=== PATIENT | female | born 1945 | race Two or more races ===

== ENCOUNTER 2023-01-25 00:47 | Inpatient (IN) | payer MEDICARE, BC ==
[~2023-01-25] VITALS: Ht 165.1 cm; Wt 47.6 kg
--- NOTE | 2023-01-25 00:54 | NUR ---
LABORATORY COURIER NOTES RECEIVED PATIENT FROM [facility]. PATIENT ARRIVED WITH 2 EMT'S AND WITH GURNEY WEARING LIGHT BROWN GOWN. PATIENT IS ON 5150 HOLD FOR DANGER TO SELF. THE TIME FOR HOLD ORDER IS 1736. THE DATE FOR HOLD IS 01/23/23. PATIENT IS A/ORIENTED TIMES 1-2. SERBIAN SPEAKER. ABLE TO MAKE NEEDS KNOWN. NO MEDICAL HISTORY. NO PSYCHIATRIC HISTORY NOTED. VITAL SIGNS : HF=977/74, P=70, RR=18, 02=96%RA, T=97.7. NO PAIN NOTED. NO SOB NOTED. NO DISTRESS NOTED. ADMITTING DIAGNOSIS IS PSYCHOSIS NOS. NO MEDICAL DIAGNOSIS. UPON FACE TO FACE EVALUATION, PATIENT IS CALM AND COOPERATIVE. PT DENIES SI/HI/AVH AT THIS TIME. NO ANXIETY NOTED. HEAD TO TOE ASSESSMENT DONE. SMALL BRUISE NOTED ON THE LEFT FOREARM . PHOTO TAKEN AND KEPT IN THE CHART. NOTIFIED DR. BERNARD AND BUSINESS INTELLIGENCE ANALYST ADDY INFORMED OF PT'S ADMISSION. ALL THE BELONGINGS COLLECTED FOR CONTRABAND CHECK. ALL THE BELONGING KEPT IN THE LOCKER. PATIENT IS ABLE TO AMBULATE WITH ASSISTANCE AND SUPERVISION. ALL SAFETY MEASURES IN PLACE. BED LOCKED IN THE LOWEST POSITION. BED ALARM ON. SIDE RAILS UP TIMES 2. WILL CONTINUE TO MONITOR EVERY 15 MINUTES FOR SAFETY DURING SHIFT.
[2023-01-25] MEDS ORDERED: ACETAMINOPHEN 325 MG TABLET PO PRN (01:00)
[2023-01-25] MEDS ORDERED: MAGNESIUM HYDROXIDE 30 ML UDC PO PRN (01:00)
[2023-01-25] MEDS ORDERED: MAG HYDROX/AL HYDROX/SIMETH 30 ML UDC PO PRN (01:00)
[2023-01-25] MEDS ORDERED: BLOOD SUGAR DIAGNOSTIC 1 EACH STRIP IN ONE (01:00)
[2023-01-25 02:14] VITALS: BP 158/74
[2023-01-25 07:23] LABS: CALCIUM, SERUM 8.2 mg/dL (8.5-10.1); CREATININE 0.7 mg/dL (0.6-1.3); POTASSIUM 3.9 mmol/L (3.5-5.1)
[2023-01-25 08:00] VITALS: BP 104/69
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
--- NOTE | 2023-01-25 11:07 | NUR ---
MONA Initial Discharge Plan: Pt currently lives at home [address] [place] [address]; [phone]). MONA will contact pt's Ciro ([phone]) to discuss and gather collateral. MONA will work with the MD, family, and treatment team.
--- NOTE | 2023-01-25 11:08 | NUR ---
Treatment Plan: Pt very confused and unable to sign the treatment plan.
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
[2023-01-25] MEDS: FLUOXETINE HCL 20 MG CAPSULE PO SCH ×2 (12:38→12:56)
[2023-01-25] MEDS: ENSURE ENLIVE 237 ML LIQUID (VANILLA) PO SCH ×2 (12:39→17:12)
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
[2023-01-25 16:00] VITALS: BP 108/66
[2023-01-25 19:48] VITALS: BP 136/58
[2023-01-25] MEDS ORDERED: OLANZAPINE 2.5 MG TABLET PO SCH (22:00)
[2023-01-25] MEDS: TEMAZEPAM 7.5 MG CAPSULE PO PRN (22:26)
[2023-01-26 07:05] LABS: BILIRUBIN,TOTAL 0.5 mg/dL (0.2-1.0); CALCIUM, SERUM 8.5 mg/dL (8.5-10.1); CREATININE 0.8 mg/dL (0.6-1.3); POTASSIUM 3.5 mmol/L (3.5-5.1)
[2023-01-26 08:00] VITALS: BP 101/55
[2023-01-26] MEDS: ENSURE ENLIVE 237 ML LIQUID (VANILLA) PO SCH ×3 (09:12→17:28)
--- NOTE | 2023-01-26 11:07 | NUR ---
RECEIVED PT IN BED SLEEPING RESTING PEACEFULLY EASY TO AROUSE, COOPERATIVE, TOOK ALL MEDICATIONS WHOLE WITH WATER, STATED SHE FELT COLD AND WAS GIVEN A BLANKET, MADE PT COMFORTABLE AND PROMOTED SELF DIGNITY WHICH GAVE HER GOOD SELF ESTEEM. ENCOURAGED PT TO EXPRESS NEEDS AND PT ABLE TO MAKE ALL NEEDS KNOWN. NO ASPIRATION , NO SOB, NO DISTRESS NOTED AT THIS TIME.
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
[2023-01-26] MEDS: FLUOXETINE HCL 20 MG CAPSULE PO SCH (12:59)
[2023-01-26] MEDS: LORAZEPAM 0.5 MG TABLET PO PRN (12:59)
[2023-01-26 16:00] VITALS: BP 110/75
[2023-01-26] MEDS ORDERED: ESCI10TA PO (16:47)
[2023-01-26 20:14] VITALS: BP 100/57
[2023-01-26] MEDS: OLANZAPINE 2.5 MG TABLET PO SCH (21:15)
[2023-01-27 08:00] VITALS: BP 125/65
[2023-01-27] MEDS: ENSURE ENLIVE 237 ML LIQUID (VANILLA) PO SCH ×3 (09:34→17:34)
[2023-01-27] MEDS ORDERED: Fluoxetine 10 mg capsule PO SCH (13:00)
[2023-01-27] MEDS: LORAZEPAM 0.5 MG TABLET PO PRN (15:48)
--- NOTE | 2023-01-27 15:48 | NUR ---
NURSE NOTE: PT ANXIOUS/RESTLESS AT THIS TIME. ATIVAN PO ADMINISTERED ORDERED. PT MONE WELL. WILL CONT TO MONITOR.
--- NOTE | 2023-01-27 15:57 | NUR ---
MONA Family Contact: MONA contacted pt's Ciro, ([phone]) and returned his call regarding his questions.
[2023-01-27 16:00] VITALS: BP 120/80
[2023-01-27 16:31] LABS: THYROID STIMULATING HORMONE 1.115 uIU/mL (0.358-3.74)
--- NOTE | 2023-01-27 17:48 | NUR ---
NURSE NOTE: PT CALM, ATIVAN EFFECTIVE AT THIS TIME. WILL CONT TO MONITOR.
--- NOTE | 2023-01-27 19:30 | NUR ---
RN notes Received Pt in gerychair. Pt is alert and orientedX1, confused, guarded, diorganized, isolative and depressed. On room air. No SOB. No S/S of distress noted. Snacks is offered. Reality orientation provided. safety precautions is maintained. will continue to monitor Q 15 mins checks for safety and behavior.
[2023-01-27 21:01] VITALS: BP 119/73
[2023-01-27] MEDS: OLANZAPINE 2.5 MG TABLET PO SCH (21:32)
[2023-01-28 08:00] VITALS: BP 127/67
--- NOTE | 2023-01-28 08:08 | NUR ---
SNF Referral: SW sent clinicals to [facility] to Jaylen reynolds ([phone]) for placement. SW sent H & P, progress notes, and medication list.
[2023-01-28] MEDS: ENSURE ENLIVE 237 ML LIQUID (VANILLA) PO SCH ×3 (08:36→17:26)
--- NOTE | 2023-01-28 09:13 | NUR ---
Court Notification: SW contacted pt's Ciro ([phone]) and notified of 5250 hearing.
--- NOTE | 2023-01-28 09:14 | NUR ---
Court Hearing: Patient's court hearing for 2260 was today and it was upheld for GD.
--- NOTE | 2023-01-28 10:41 | NUR ---
SNF Contact: SW spoke with [facility] to Jaylen reynolds ([phone]) who stated pt is accepted.
[2023-01-28] MEDS: OLANZAPINE 2.5 MG TABLET PO SCH ×2 (13:26→22:12)
[2023-01-28] MEDS: Fluoxetine 10 mg capsule PO SCH (13:26)
[2023-01-28 16:00] VITALS: BP 113/63
--- NOTE | 2023-01-28 18:04 | NUR ---
RN-NOTES PATIENT IS VISIBLE IN THE UNIT ,GUARDED,A/O X3 AMBULATORY STEADY GAIT.NO ACUTE DISTRESS NOTED. COMPLIANT WITH MEDICATIONS. PATIENT ABLE TO MAKE NEEDS KNOWN TPO THE STAFF. PARTICIPATES WITH THE GROUP ALL NEEDS ATTENDED AND ANTICIPATED. WILL CONT. MONITORING FOR SAFETY AND BEHAVIOR.WILL ENDORSE TO THE INCOMING NURSE FOR THE CONTINUITY OF CARE. Addendum: 01/28/23 at 1806 by KATIE TAYLOR RN CHARTED WITH THE WRONG PATIENT.
--- NOTE | 2023-01-28 18:07 | NUR ---
RN-NOTES PATIENT IS VISIBLE IN THE UNIT ,GUARDED,A/O X1 NEEDS MODERATE ASSIST WITH AMBULATION AND ADL'S.NO ACUTE DISTRESS NOTED. COMPLIANT WITH MEDICATIONS. PATIENT QUIET,NOTED WITH EPISODE OF TALKING TO SELF. NEEDS DIRECTIONS AND INSTRUCTIONS. ALL NEEDS ATTENDED AND ANTICIPATED. WILL CONT. MONITORING FOR SAFETY AND BEHAVIOR.WILL ENDORSE TO THE INCOMING NURSE FOR THE CONTINUITY OF CARE.
--- NOTE | 2023-01-28 19:30 | NUR ---
GPS OPENING NOTE RECEIVED PT UP IN [place] CHAIR AT THIS TIME. WITH FAMILY VISITOR AT THIS TIME. A/O X1, FLAT AFFECT, AND ABLE TO MAKE NEEDS KNOWN. ALL NEEDS ATTENDED ANTICIPATED AT THIS TIME. WILL CONTINUE TO MONITOR FOR SAFETY AND BEHAVIOR.
[2023-01-28 20:54] VITALS: BP 114/69
[2023-01-29 08:00] VITALS: BP 126/69
[2023-01-29] MEDS: ENSURE ENLIVE 237 ML LIQUID (VANILLA) PO SCH ×3 (08:00→17:07)
[2023-01-29] MEDS: OLANZAPINE 2.5 MG TABLET PO SCH ×2 (12:04→21:54)
[2023-01-29] MEDS: Fluoxetine 10 mg capsule PO SCH (12:04)
[2023-01-29 16:00] VITALS: BP 112/65
--- NOTE | 2023-01-29 19:15 | NUR ---
RN notes Received Pt in gerychair sitting comfortably. Pt is alert and orientedX1, confused, guarded, meds compliant, disorganized, isolative and depressed. On room air. No SOB. No S/S of distress noted. Snacks is offered. Reality orientation provided. safety precautions is maintained. Will continue to monitor Q 15 mins checks for safety and behavior.
[2023-01-29 20:00] VITALS: BP 101/65
[2023-01-29 20:34] LABS: BILIRUBIN,URINE NEGATIVE (NEGATIVE); COLOR,URINE YELLOW (YELLOW); LEUKOCYTE ESTERASE ,URINE 3+ (NEGATIVE); NITRITE, URINE POSITIVE (NEGATIVE); PH,URINE 8.5 (5.0-8.0); PROTEIN,URINE 2+ mg/dl (NEGATIVE); UGLUCOSE NEGATIVE (NEGATIVE); UROBILINOGEN,URINE 0.2 EU/dL (0.2)
[2023-01-29 20:44] LABS: BACTERIA,URINE Many /HPF (None Seen); RBC,URINE 51-80 /HPF (0-2); WBC,URINE 51-80 /HPF (0-3)
[2023-01-29 20:45] LABS: SQUAMOUS EPITHELIAL CELL,UR Few /HPF (None Seen)
--- NOTE | 2023-01-29 21:27 | NUR ---
GPS RN NOTE, PATIENT UA RESULTS ARE FOLLOWS, URINE NITRITE POSITIVE, LEUKOCYTES 3+, WBC 51-80, BACTERIA MANY. PAGED [facility] AND INFORMED LA GUZMAN NP OF MY FINDINGS. LA GUZMAN NP ORDERED MACROBID 100MG PO BID X 7 DAYS. ALL ORDERS NOTED AND CARRIED OUT. WILL CONTINUE TO MONITOR THIS PATIENT WITH THE HELP OF STAFF.
--- NOTE | 2023-01-29 21:50 | NUR ---
RN notes Called and spoke with [facility] to verify microbid meds.
[2023-01-29] MEDS: NITROFURANTOIN/MONOHYDRATE MACROCRYSTALS 100 MG CAPSULE PO SCH (21:54)
[2023-01-29] MEDS: LORAZEPAM 0.5 MG TABLET PO PRN (22:58)
--- NOTE | 2023-01-29 23:03 | NUR ---
RN notes Pt is feeling anxious and restless. administered ativan as ordered. safety precautions is maintained. will continue to monitor.
[2023-01-30 08:00] VITALS: BP 150/67
--- NOTE | 2023-01-30 08:44 | NUR ---
Dr. James in the unit and seen pt. and ordered Aricept 5 mg po QHS.
[2023-01-30] MEDS: ENSURE ENLIVE 237 ML LIQUID (VANILLA) PO SCH ×3 (09:06→17:05)
[2023-01-30] MEDS: NITROFURANTOIN/MONOHYDRATE MACROCRYSTALS 100 MG CAPSULE PO SCH ×2 (09:06→22:13)
[2023-01-30] MEDS: OLANZAPINE 2.5 MG TABLET PO SCH ×2 (12:10→22:13)
[2023-01-30 16:00] VITALS: BP 96/67
--- NOTE | 2023-01-30 18:39 | NUR ---
RN-NOTES PATIENT IS VISIBLE IN THE UNIT ,GUARDED,A/O X1 NEEDS MODERATE ASSIST WITH AMBULATION AND ADL'S.NO ACUTE DISTRESS NOTED. COMPLIANT WITH MEDICATIONS. PATIENT QUIET,NOTED WITH EPISODE OF TALKING AND MUMBLING TO SELF. NEEDS DIRECTIONS AND INSTRUCTIONS. ALL NEEDS ATTENDED AND ANTICIPATED. WILL CONT. MONITORING FOR SAFETY AND BEHAVIOR.WILL ENDORSE TO THE INCOMING NURSE FOR THE CONTINUITY OF CARE.
--- NOTE | 2023-01-30 19:20 | NUR ---
RN notes Received Pt in gerychair sitting comfortably. Pt is alert and orientedX1, confused, guarded, meds compliant, disorganized, isolative and depressed. Pt is able to make needs known. VS is stable. On room air. No SOB. No S/S of distress noted. Snacks is offered and provided. Reality orientation provided. Safety precautions is maintained. Will continue to monitor Q 15 mins checks for safety and behavior.
[2023-01-30 20:00] VITALS: BP 112/55
[2023-01-30] MEDS: DONEPEZIL 5 MG TABLET PO SCH (22:13)
[2023-01-31] MEDS: TEMAZEPAM 7.5 MG CAPSULE PO PRN (00:04)
[2023-01-31 08:00] VITALS: BP 120/69
[2023-01-31] MEDS: NITROFURANTOIN/MONOHYDRATE MACROCRYSTALS 100 MG CAPSULE PO SCH ×2 (08:04→21:29)
[2023-01-31] MEDS: ENSURE ENLIVE 237 ML LIQUID (VANILLA) PO SCH ×3 (08:05→16:19)
[2023-01-31] MEDS: OLANZAPINE 2.5 MG TABLET PO SCH ×2 (11:47→21:30)
[2023-01-31 16:00] VITALS: BP 120/61
[2023-01-31 20:30] VITALS: BP 125/63
[2023-01-31] MEDS: DONEPEZIL 5 MG TABLET PO SCH (21:30)
[2023-02-01 08:00] VITALS: BP 132/80
[2023-02-01] MEDS: ENSURE ENLIVE 237 ML LIQUID (VANILLA) PO SCH ×2 (08:15→12:47)
[2023-02-01] MEDS: NITROFURANTOIN/MONOHYDRATE MACROCRYSTALS 100 MG CAPSULE PO SCH (08:15)
--- NOTE | 2023-02-01 10:47 | NUR ---
SW Family Contact: SW received a call from pt's first cousin Bubba, ([phone]) who wanted details about pt. SW gave limited information and recommended pt requires higher level of care.
[2023-02-01 12:19] LABS: BASOPHILS % (AUTO) 0.3 % (0.0-2.0); EOSINOPHILS % (AUTO) 2.3 % (0.0-6.0); HEMATOCRIT 40 % (33-45); HEMOGLOBIN 13.2 g/dL (11.5-14.8); LYMPHOCYTES # (AUTO) 0.7 K/uL (0.8-4.8); LYMPHOCYTES % (AUTO) 10.1 % (20.0-44.0); MEAN CORPUSCULAR HGB CONC 33 g/dl (31.0-36.0); MEAN CORPUSCULAR VOLUME 100 fL (82-100); MONOCYTES # (AUTO) 0.5 K/uL (0.1-1.30); MONOCYTES % (AUTO) 7.6 % (2.0-12.0); NEUTROPHILS # (AUTO) 5.6 K/uL (1.8-8.9); NEUTROPHILS % (AUTO) 79.7 % (43.0-81.0); PLATELET COUNT (AUTO) 188 K/uL (150-450); RED BLOOD CELL COUNT(AUTO) 4.06 MIL/uL (4.0-5.2)
--- NOTE | 2023-02-01 12:30 | NUR ---
RN-CO: Dr Mejia ordered to CONTINUE 14 DAY HOLD and discharge patient to medical floor for further evaluation and treatment of UTI. DR Mojica will examine the patient and attend to her.
[2023-02-01 12:39] LABS: ALBUMIN 2.5 g/dL (3.4-5.0); BILIRUBIN,TOTAL 0.5 mg/dL (0.2-1.0); CALCIUM, SERUM 8.6 mg/dL (8.5-10.1); CREATININE 0.8 mg/dL (0.6-1.3); MAGNESIUM 2.4 mg/dL (1.8-2.4); POTASSIUM 4.5 mmol/L (3.5-5.1); TOTAL PROTEIN, SERUM 5.7 g/dL (6.4-8.2)
[2023-02-01] MEDS: OLANZAPINE 2.5 MG TABLET PO SCH (12:47)
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
--- NOTE | 2023-02-01 14:45 | NUR ---
NURSE NOTE: DR SERRANO IN TO SEE PT, ORDERED FOR PT TO BE TRANSFERRED TO FOR IV ATB AND FLUIDS. DR BERNARD NOTIFIED AND ALLOWED TRANSFER, BUT CONT'D HOLD AT THIS TIME. PT TRANSFERRED IN STABLE [facility]D VIA [facility] AT THIS TIME. PERSONAL BELONGINGS TRANSFERRED WITH PT. REPORT GIVEN TO LUCIANO BUSTAMANTE. Addendum: 02/01/23 at 1545 by LISS FERRER RN PT DISCHARGED FROM [facility] AND TRANSFERRED TO FOR IV ATB FOR UTI. DR BERNARD ORDERED TO CONT 14 DAY HOLD. LUCIANO BUSTAMANTE INFORMED FOR CONTINUITY OF CARE.
[2023-02-02] MEDS ORDERED: LACT-246 PO (11:39)
[2023-02-02] MEDS ORDERED: MAGN400O6 PO (11:39)
[2023-02-02] MEDS ORDERED: OLAN5TAB3 PO (11:39)
[2023-02-02] MEDS ORDERED: MAG30ORA PO (11:39)
[2023-02-02] MEDS ORDERED: LORA-259 PO (11:39)
[2023-02-02] MEDS ORDERED: DONE5TAB34 PO (11:39)
[2023-02-02] MEDS ORDERED: OLAN2.5T3 PO (11:39)
[2023-02-02] MEDS ORDERED: TEMA7.5C12 PO (11:39)
[2023-02-02] MEDS ORDERED: ACET-868 PO (11:39)
== END 2023-02-01 14:41 | disposition short-term general hospital (02) | DRG 885 ==
LOC: GPS 00:47
PROVIDERS: ADMIT Psychiatry & Neurology Psychosomatic Medicine; ATTEND Registered Nurse
DX: F33.3 Major depressive disorder, recurrent, severe with psychotic symptoms (principal); E43 Unspecified severe protein-calorie malnutrition; R44.0 Auditory hallucinations; G93.40 Encephalopathy, unspecified; N39.0 Urinary tract infection, site not specified; F03.92 Unspecified dementia, unspecified severity, with psychotic disturbance; R79.89 Other specified abnormal findings of blood chemistry; E86.0 Dehydration; B96.89 Other specified bacterial agents as the cause of diseases classified elsewhere
CPT/HCPCS: 36415; 70450-TC; 71045-TC; 80048-TC; 80053-TC; 80061-TC; 81001; 82607-TC; 82962-TC; 83735-TC; 84443-TC; 85025-TC; 87081-TC; 87086-TC; 97112-TC; 97116-TC; 97530-TC

== ENCOUNTER 2023-02-01 13:49 | Inpatient (IN) | payer MEDICARE, BC ==
[~2023-02-01] VITALS: Ht 170.2 cm; Wt 50.8 kg
[2023-02-01] MEDS ORDERED: ACETAMINOPHEN 325 MG TABLET PO PRN (15:00)
[2023-02-01] MEDS ORDERED: ONDANSETRON HCL/PF 4 MG/2 ML VIAL IVP PRN (15:00)
[2023-02-01] MEDS ORDERED: Z GUARD REMEDY 4 OZ OINT TP PRN (15:00)
[2023-02-01] MEDS ORDERED: MAG HYDROX/AL HYDROX/SIMETH 30 ML UDC PO PRN (15:00)
[2023-02-01] MEDS ORDERED: MAGNESIUM HYDROXIDE 30 ML UDC PO PRN (15:00)
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
[2023-02-01] MEDS: CEFEPIME 1 GM in IV D5W 50 ML IV SCH ×2 (16:03→20:59)
[2023-02-01] MEDS: IV NS 0.9% 1,000 ML IV PRN (16:04)
[2023-02-01 16:36] VITALS: BP 140/83
[2023-02-01] MEDS: ENSURE ENLIVE 237 ML LIQUID (VANILLA) PO SCH (17:05)
--- NOTE | 2023-02-01 18:43 | NUR ---
MS RN CLOSING NOTES PATIENT RESTING IN BED, A/Ox1, STABLE ON ROOM AIR. NO S/S OF RESPIRATORY DISTRESS. IV ACCESS R FA#19Q RUNNING NS @75 ML/HR. PATIENT AMB WITH ASSISTANCE AND HAS BATHROOM PRIVLEDGE, SITTER AT BEDSIDE. SKIN ISSUES: BILATERAL ARM BRUISES. SAFETY MEASURES MAINTAINED: BED LOCKED AND IN LOWEST POSITION, HOB ELEVATED, CALL LIGHT WITHIN REACH, SITTER AT BED SIDE, SIDE RAILS UPx3, BED ALARM ON. WILL ENDORSE TO NEXT SHIFT ANY BLOSSOM. Addendum: 02/01/23 at 1848 by DIANNA RODRIGUEZ RN ADDENDUM: ON A 8915 HOLD
--- NOTE | 2023-02-01 19:30 | NUR ---
MS RN NOTES RECEIVED LYING ON BED,CALM AND QUIET,,ON 5150 HOLD,GRAVELY DISABLED.A/O X1,CONFUSED,PRESENT IVF NS AT 75ML/HR RATE INFUSING WELL ON RIGHT FA SALINE LOCK VIA IV PUMP,SITE PATENT.FALL RISK,SITTER AT BEDSIDE,CALL LIGHT IN REACH,NEEDS ANTICIPATED.
[2023-02-01 20:00] VITALS: BP 112/65
[2023-02-02 05:48] LABS: BASOPHILS % (AUTO) 0.5 % (0.0-2.0); EOSINOPHILS % (AUTO) 2.1 % (0.0-6.0); HEMATOCRIT 34 % (33-45); HEMOGLOBIN 11.4 g/dL (11.5-14.8); LYMPHOCYTES # (AUTO) 0.9 K/uL (0.8-4.8); LYMPHOCYTES % (AUTO) 13.3 % (20.0-44.0); MEAN CORPUSCULAR HGB CONC 33 g/dl (31.0-36.0); MEAN CORPUSCULAR VOLUME 100 fL (82-100); MONOCYTES # (AUTO) 0.8 K/uL (0.1-1.30); MONOCYTES % (AUTO) 12.3 % (2.0-12.0); NEUTROPHILS # (AUTO) 4.6 K/uL (1.8-8.9); NEUTROPHILS % (AUTO) 71.8 % (43.0-81.0); PLATELET COUNT (AUTO) 162 K/uL (150-450); RED BLOOD CELL COUNT(AUTO) 3.43 MIL/uL (4.0-5.2); WHITE BLOOD COUNT (AUTO) 6.5 K/uL (4.3-11.0)
[2023-02-02 06:03] LABS: CALCIUM, SERUM 8.3 mg/dL (8.5-10.1); CARBON DIOXIDE 31 mmol/L (21-32); CHLORIDE 109 mmol/L (98-107); CREATININE 0.7 mg/dL (0.6-1.3); GLUCOSE 126 mg/dL (74-106); MAGNESIUM 2.3 mg/dL (1.8-2.4); PHOSPHORUS 3.1 mg/dL (2.5-4.9); POTASSIUM 4.3 mmol/L (3.5-5.1); SODIUM SERUM 143 mmol/L (136-145); UREA NITROGEN, BLOOD 41 mg/dL (7-18)
--- NOTE | 2023-02-02 06:22 | NUR ---
MS RN NOTES FAIRLY RESTED AT NIGHT,NO FALL,NO INJURY,COMPLIANT WITH CARE,ABLE TO AMBULATE WITH WALKER TO THE TOILET.HAD ONE BM.SITTER AT BEDSIDE FOR SAFETY.IN NO ACUTE DISTRESS.
[2023-02-02] MEDS: PANTOPRAZOLE 40 MG TABLET.DR PO SCH (07:28)
--- NOTE | 2023-02-02 07:45 | NUR ---
MS RN OPENING NOTES RECEIVED PATIENT SLEEPING IN BED, A/Ox1, STABLE ON ROOM AIR. NO S/S OF RESPIRATORY DISTRESS. IV ACCESS R FA#24G RUNNING NS @75 ML/HR. PATIENT AMBULATORY WITH ASSISTANCE AND HAS BATHROOM PRIVLEDGE, SITTER AT BEDSIDE. SKIN ISSUES: BILATERAL ARM BRUISES. SAFETY MEASURES MAINTAINED: BED LOCKED AND IN LOWEST POSITION, HOB ELEVATED, CALL LIGHT WITHIN REACH, SITTER AT BED SIDE, SIDE RAILS UPx3, BED ALARM ON. WILL CONTINUE TO MONITOR PATIENT.
[2023-02-02] MEDS: ENSURE ENLIVE 237 ML LIQUID (VANILLA) PO SCH ×2 (08:04→17:08)
[2023-02-02] MEDS: CEFEPIME 1 GM in IV D5W 50 ML IV SCH (08:10)
--- NOTE | 2023-02-02 10:00 | NUR ---
OUTSIDE UPHOLSTERER NOTES INFORMED DOCTOR BYRD FOR PATIENT PROPHYLAXIS AND WAITING FOR HIS RESPONSE.
--- NOTE | 2023-02-02 10:51 | NUR ---
Family Contact: SW spoke with pt's Ciro ([phone]) who is aware of pt being accepted at [facility] and is acceptable. He stated that his phone is having difficulties at this time and he can be best reached at ([phone]) or ([phone]).
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
[2023-02-02] MEDS: CEPHALEXIN MONOHYDRATE 500 MG CAPSULE PO SCH ×2 (11:12→17:12)
[2023-02-02] MEDS ORDERED: MAGN400O6 PO (11:39)
[2023-02-02] MEDS ORDERED: MAG30ORA PO (11:39)
[2023-02-02] MEDS ORDERED: OLAN5TAB3 PO (11:39)
[2023-02-02] MEDS ORDERED: DONE5TAB34 PO (11:39)
[2023-02-02] MEDS ORDERED: OLAN2.5T3 PO (11:39)
[2023-02-02] MEDS ORDERED: TEMA7.5C12 PO (11:39)
[2023-02-02] MEDS ORDERED: LORA-259 PO (11:39)
[2023-02-02] MEDS ORDERED: LACT-246 PO (11:39)
[2023-02-02] MEDS ORDERED: ACET-868 PO (11:39)
--- NOTE | 2023-02-02 14:27 | NUR ---
RN NOTES: COLLECTED URINE, CALLED TANK (LAB) FOR MAINTENANCE CLERK.
[2023-02-02] MEDS: IV NS 0.9% 1,000 ML IV PRN (18:17)
[2023-02-02 18:30] LABS: BILIRUBIN,URINE NEGATIVE (NEGATIVE); COLOR,URINE YELLOW (YELLOW); LEUKOCYTE ESTERASE ,URINE 2+ (NEGATIVE); NITRITE, URINE NEGATIVE (NEGATIVE); PROTEIN,URINE NEGATIVE (NEGATIVE); UGLUCOSE NEGATIVE (NEGATIVE); UROBILINOGEN,URINE 0.2 EU/dL (0.2)
--- NOTE | 2023-02-02 18:41 | NUR ---
MS RN CLOSING NOTES PATIENT AWAKE IN BED, A/Ox1-2, STABLE ON ROOM AIR. NO S/S OF RESPIRATORY DISTRESS. IV ACCESS L UA#20G RUNNING NS @75 ML/HR. PATIENT AMBULATORY WITH ASSISTANCE AND HAS BATHROOM PRIVLEDGE, SITTER AT BEDSIDE. SKIN ISSUES: BILATERAL ARM BRUISES. SAFETY MEASURES MAINTAINED: BED LOCKED AND IN LOWEST POSITION, HOB ELEVATED, CALL LIGHT WITHIN REACH, SIDE RAILS UPx3, BED ALARM ON. WILL ENDORSE TO JOURNEYMAN WIREMAN NURSE FOR BLOSSOM.
[2023-02-02 19:18] LABS: WBC,URINE 51-80 /HPF (0-3)
[2023-02-02 19:19] LABS: BACTERIA,URINE Moderate /HPF (None Seen); SQUAMOUS EPITHELIAL CELL,UR Moderate /HPF (None Seen)
--- NOTE | 2023-02-02 19:30 | NUR ---
noc rn opening Received patient in bed, very confused, sitter at bed side. a/ox0, frequent re-orientation required. no s/s of apparent distress on room air. denies pain. IV access on MACHO #20 running NS @75mls/hr. safety in place-- bed in lowest locked position, side rails up X4, bed alarm in place. Navi at bedside. will continue with the plan of care for patient.
[2023-02-02 20:00] VITALS: BP 118/61
[2023-02-03] MEDS: CEPHALEXIN MONOHYDRATE 500 MG CAPSULE PO SCH ×4 (00:09→17:55)
--- NOTE | 2023-02-03 01:09 | NUR ---
Noc rn note Covid swab not done in ER. Covid swab sent in lab at this time.
[2023-02-03 06:05] LABS: BASOPHILS % (AUTO) 0.5 % (0.0-2.0); CALCIUM, SERUM 7.9 mg/dL (8.5-10.1); CARBON DIOXIDE 29 mmol/L (21-32); CHLORIDE 107 mmol/L (98-107); CREATININE 0.5 mg/dL (0.6-1.3); EOSINOPHILS % (AUTO) 2.5 % (0.0-6.0); GLUCOSE 99 mg/dL (74-106); HEMATOCRIT 34 % (33-45); HEMOGLOBIN 11.4 g/dL (11.5-14.8); LYMPHOCYTES # (AUTO) 1.3 K/uL (0.8-4.8); LYMPHOCYTES % (AUTO) 19.1 % (20.0-44.0); MEAN CORPUSCULAR HGB CONC 33 g/dl (31.0-36.0); MEAN CORPUSCULAR VOLUME 99 fL (82-100); MONOCYTES # (AUTO) 0.7 K/uL (0.1-1.30); MONOCYTES % (AUTO) 10.7 % (2.0-12.0); NEUTROPHILS # (AUTO) 4.6 K/uL (1.8-8.9); NEUTROPHILS % (AUTO) 67.2 % (43.0-81.0); PLATELET COUNT (AUTO) 173 K/uL (150-450); POTASSIUM 3.9 mmol/L (3.5-5.1); RED BLOOD CELL COUNT(AUTO) 3.47 MIL/uL (4.0-5.2); SODIUM SERUM 139 mmol/L (136-145); UREA NITROGEN, BLOOD 35 mg/dL (7-18); WHITE BLOOD COUNT (AUTO) 6.9 K/uL (4.3-11.0)
--- NOTE | 2023-02-03 07:15 | NUR ---
RN OPENING NOTE- PT WITH SITTER 1:1, ASLEEP THOUGH EASILY AWAKENED, CONFUSED, ORIENTED TO PERSON ONLY, ROOM AIR SATS 98%, IV ACCESS L UA#20G RUNNING NS @75 ML/HR. PATIENT AMBULATORY WITH ASSISTANCE. SKIN ISSUES: BILATERAL ARM ECCHYMOSIS NOTED, SAFETY MEASURES MAINTAINED: BED LOCKED AND IN LOWEST POSITION, HOB ELEVATED, CALL LIGHT WITHIN REACH, SIDE RAILS UPx3, BED ALARM ON. MONITOR / ASSIST
--- NOTE | 2023-02-03 07:26 | NUR ---
noc rn note All needs attended. all scheduled medications administered. safety in place. endorsed to elvie Abarca RN for continuity of care.
[2023-02-03] MEDS: IV NS 0.9% 1,000 ML IV PRN (07:53)
[2023-02-03] MEDS: ENSURE ENLIVE 237 ML LIQUID (VANILLA) PO SCH ×2 (08:00→08:55)
[2023-02-03] MEDS: PANTOPRAZOLE 40 MG TABLET.DR PO SCH (08:19)
[2023-02-03] MEDS: OLANZAPINE 2.5 MG TABLET PO SCH ×2 (13:33→20:45)
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
--- NOTE | 2023-02-03 19:30 | NUR ---
MS RN OPENING NOTES - RECEIVED PATIENT TRYING TO GET OUT OF BED, SITTER ON BEDSIDE. A/O X1, CONFUSED. BREATHING EVEN AND NON-LABORED ON ROOM AIR. NOT IN APPARENT DISTRESS. NO C/O PAIN AT THIS TIME. HAS LEFT UPPER ARM IV ACCESS #20G CURRENTLY DISCONNECTED FROM IVF. MILD LEAKING NOTED. SAFETY PRECAUTIONS IN PLACE: BED LOCKED AND IN LOW POSITION, SIDE RAILS UP X3, BED ALARM ON, CALL LIGHT WITHIN REACH. WILL CONTINUE PLAN OF CARE.
[2023-02-03 20:00] VITALS: BP 149/86
[2023-02-03] MEDS ORDERED: DONEPEZIL 5 MG TABLET PO SCH (22:00)
[2023-02-03] MEDS ORDERED: TEMAZEPAM 7.5 MG CAPSULE PO SCH (22:00)
[2023-02-03] MEDS ORDERED: ACETAMINOPHEN 325 MG TABLET PO PRN (22:00)
[2023-02-04] MEDS: CEPHALEXIN MONOHYDRATE 500 MG CAPSULE PO SCH ×3 (00:39→11:21)
[2023-02-04] MEDS: IV NS 0.9% 1,000 ML IV PRN (02:05)
--- NOTE | 2023-02-04 06:30 | NUR ---
MS RN CLOSING NOTES - PATIENT SLEEPING, EASY TO AROUSE. HAS FLIGHT OF IDEAS AND SWITCHES LANGUAGE FROM [place]AKUT TO [place]. FREQUENT RE-ORIENTATION NEEDED. WE CALLED HER TO ENCOURAGE HER TO TAKE HER MEDS. NO CARDIAC OR RESPIRATORY DISTRESS THROUGHOUT THE NIGHT. AFEBRILE. HAS LEFT UPPER ARM IV ACCESS #20G WITH NS RUNNING AT 75 ML/HR. CHANGED DRESSING. IV IS INTACT, PATENT AND FLUSHING. BILATERAL ARM BRUISING NOTED. ALL DUE MEDS GIVEN AND NEEDS ATTENDED. ABLE TO AMBULATE TO BATHROOM USING FWW AND NURSE ASSIST. SAFETY PRECAUTIONS MAINTAINED. WILL ENDORSE TO NEXT SHIFT FOR BLOSSOM.
[2023-02-04] MEDS: PANTOPRAZOLE 40 MG TABLET.DR PO SCH (07:24)
--- NOTE | 2023-02-04 07:40 | NUR ---
RN OPENING NOTES - RECEIVED PATIENT AWAKE AND CALM IN BED BUT TRYING TO GET OUT OF BED, 1:1 SITTER ON BEDSIDE. A/O X1, DISORIENTED AND CONFUSED. BREATHING EVEN AND NON-LABORED ON ROOM AIR. NOT IN APPARENT DISTRESS. NO C/O PAIN AT THIS TIME. PT HAS LEFT UPPER ARM IV ACCESS #20G CURRENTLY , NS RUNNING AT 75 ML/HR. . SAFETY PRECAUTIONS IN PLACE: BED LOCKED AND IN LOW POSITION, SIDE RAILS UP X3, BED ALARM ON, CALL LIGHT WITHIN REACH. WILL CONTINUE PLAN OF CARE.
[2023-02-04] MEDS: ENSURE ENLIVE 237 ML LIQUID (VANILLA) PO SCH ×2 (08:30→11:47)
[2023-02-04] MEDS ORDERED: Cephalexin Monohydrate PO (08:49)
[2023-02-04] MEDS: OLANZAPINE 2.5 MG TABLET PO SCH (12:35)
--- NOTE | 2023-02-04 14:04 | NUR ---
RN NOTE- DR BERNARD REMOVED 5250 HOLD. PT TO GO TO [facility]/ MONITORING PT / FREQUENT VISUAL CHECKS
--- NOTE | 2023-02-04 16:21 | NUR ---
RN NOTE- PT DC AT THIS TIME TO [facility]. REPORT PHONED TO FACILITY. VS STABLE, IV REMOVED, ID WRISTBAND REMOVED, PHOTO TAKEN OF SACRAL AREA. DISCHARGE INSTRUCTIONS REVIEWED W NURSING STAFF / UNDERSTOOD. HOLD DC'D BY DR BERNARD. LALA NOTIFIED. ESCORTED OFF UNIT BY STAFF
== END 2023-02-04 16:17 | DRG 640 ==
LOC: MED 13:49
PROVIDERS: ADMIT Nurse Practitioner Acute Care; ATTEND Internal Medicine
DX: E86.0 Dehydration (principal); E43 Unspecified severe protein-calorie malnutrition; G92.8 Other toxic encephalopathy; F03.93 Unspecified dementia, unspecified severity, with mood disturbance; R64 Cachexia; N39.0 Urinary tract infection, site not specified; D68.59 Other primary thrombophilia; Z68.1 Body mass index [BMI] 19.9 or less, adult; F05 Delirium due to known physiological condition; Z20.822 Contact with and (suspected) exposure to COVID-19; F29 Unspecified psychosis not due to a substance or known physiological condition; F32.9 Major depressive disorder, single episode, unspecified; Z88.0 Allergy status to penicillin; Z79.899 Other long term (current) drug therapy; B96.4 Proteus (mirabilis) (morganii) as the cause of diseases classified elsewhere; R79.89 Other specified abnormal findings of blood chemistry; Z74.09 Other reduced mobility; F22 Delusional disorders; R26.89 Other abnormalities of gait and mobility; B96.89 Other specified bacterial agents as the cause of diseases classified elsewhere
CPT/HCPCS: 36415; 71045-TC; 80048-TC; 81001; 83735-TC; 84100-TC; 85025-TC; 87081-TC; 87086-TC; 97110-TC; 97116-TC; 97530-TC; A4223; G0378; J0692; J7030; J7060